=== PATIENT | female | born 1970 ===

== ENCOUNTER → 2025-04-08 12:28 | Outpatient (ROUT) | payer SELFPAY ==
[2025-04-08 13:12] LABS: Influenza A - CEPHEID Flu A NEGATIVE (NEGATIVE); Influenza B - CEPHEID Flu B NEGATIVE (NEGATIVE); Respiratory Syncytial Virus Negative (Negative)
[2025-04-08 13:32] LABS: COVID-19 CEPHEID 4-PLEX PCR Negative (Negative)
== END ==
LOC: LAB 12:30
PROVIDERS: Visit Provider Registered Nurse
DX: R05.1 Acute cough (principal); R50.9 Fever, unspecified
CPT/HCPCS: 0241U